=== PATIENT | female | born 1945 | race Caucasian/White ===

== ENCOUNTER 2018-03-17 18:25 | Emergency (ER) | payer MEDICARE, BC ==
[~2018-03-17] VITALS: Ht 160 cm; Wt 81.6 kg
[2018-03-17] MEDS ORDERED: diphenhydrAMINE 50 MG/1 ML VIAL IV ONE (18:30)
[2018-03-17] MEDS ORDERED: diphenhydrAMINE 50 MG/1 ML VIAL ONE (18:33)
[2018-03-17] MEDS ORDERED: methylPREDNISolone SOD SUCC 125 MG/2 ML VIAL ONE (18:36)
[2018-03-17] MEDS ORDERED: methylPREDNISolone SOD SUCC 125 MG/2 ML VIAL IV ONE (18:45)
[2018-03-17] MEDS ORDERED: NEOMY/BACITRA/POLYMYXIN B OINT UD PACKET TP ONE ×2 (18:59→19:00)
--- NOTE | 2018-03-17 19:23 | NUR ---
Received report from Earline RN, pt. resting in bed, c/o burning in throat and CP - notified Dr. Phan - awaiting orders,
[2018-03-17] MEDS ORDERED: CEFTRIAXONE 1 G in IV DEXTROSE 5% 50 ML IV ONE (19:30)
[2018-03-17] MEDS ORDERED: IV NORMAL SALINE 1000 ML BAG IV ONE (19:30)
[2018-03-17] MEDS ORDERED: CEFTRIAXONE 1 G VIAL ONE (19:38)
--- NOTE | 2018-03-17 21:03 | NUR ---
Patient discharged to home in stable conditon. Written and verbal after care instructions given. Patient verbalizes understanding of instructions. Pt. d/c w/ prescription per MD order, d/c papers signed, all belongings w/ pt., IV/ID band removed, ambualted w/ steady gait out of ED w/ male sweep molder, left in private vehicle, no acute distress,
== END 2018-03-17 21:08 | disposition home or self-care (01) ==
LOC: ER 18:25
DX: L50.0 Allergic urticaria (principal); N39.0 Urinary tract infection, site not specified; E78.5 Hyperlipidemia, unspecified; K21.9 Gastro-esophageal reflux disease without esophagitis; Z88.8 Allergy status to other drugs, medicaments and biological substances
CPT/HCPCS: 93005; 96365; 96375; 99283; J0696; J1200; J2930; J7060; A4663; J7030

== ENCOUNTER 2019-02-14 15:17 | Emergency (ER) | payer MEDICARE, BC ==
[~2019-02-14] VITALS: Ht 160 cm; Wt 83.9 kg
--- NOTE | 2019-02-14 15:30 | NUR ---
PT IS IN ROOM #2A. DR CROW EVALUATED THE PT.
[2019-02-14] MEDS ORDERED: HYDROMORPHONE 1 MG/1 ML DISP.SYRIN IV ONE (15:45)
[2019-02-14] MEDS ORDERED: IV NORMAL SALINE 1000 ML BAG IV ONE (15:45)
[2019-02-14] MEDS ORDERED: ONDANSETRON 4 MG/2 ML VIAL IV ONE (15:45)
[2019-02-14] MEDS ORDERED: ONDANSETRON 4 MG/2 ML VIAL ONE (15:51)
[2019-02-14] MEDS ORDERED: HYDROMORPHONE 1 MG/1 ML DISP.SYRIN ONE (15:51)
[2019-02-14 15:54] LABS: BASOPHILS # (AUTO) 0.1 K/uL (0.0-8.0); BASOPHILS % (AUTO) 0.9 % (0.0-2.0); EOSINOPHILS # (AUTO) 0.4 K/uL (0.0-0.7); EOSINOPHILS % (AUTO) 3.9 % (0.0-7.0); HEMATOCRIT 38.2 % (31.2-41.9); HEMOGLOBIN 12.4 g/dL (10.9-14.3); LYMPHOCYTES # (AUTO) 2.1 K/uL (20.0-40.0); LYMPHOCYTES % (AUTO) 23.6 % (20.5-51.5); MEAN CORPUSCULAR HEMOGLOBIN 27.4 uug (24.7-32.8); MEAN CORPUSCULAR HGB CONC 32 g/dL (32.3-35.6); MEAN CORPUSCULAR VOLUME 84.7 fL (75.5-95.3); MONOCYTES # (AUTO) 0.8 K/uL (2.0-10.0); MONOCYTES % (AUTO) 8.9 % (0.0-11.0); NEUTROPHILS # (AUTO) 5.7 K/uL (1.8-8.9); NEUTROPHILS % (AUTO) 62.7 % (38.5-71.5); PLATELET COUNT (AUTO) 200 K/uL (179-408); RED BLOOD CELL COUNT(AUTO) 4.51 MIL/uL (3.63-4.92); WHITE BLOOD COUNT (AUTO) 9.1 K/uL (3.8-11.8)
[2019-02-14 16:09] LABS: CREATININE 0.8 mg/dL (0.6-1.3)
[2019-02-14] MEDS ORDERED: ALPR0.5T PO (16:12)
[2019-02-14] MEDS ORDERED: FLUT1DIS27 IH (16:12)
[2019-02-14] MEDS ORDERED: METO-356 PO (16:12)
[2019-02-14] MEDS ORDERED: ATOR10TA PO (16:12)
[2019-02-14] MEDS ORDERED: TRAM50TA2 PO (16:12)
[2019-02-14] MEDS ORDERED: BUPR-51 PO (16:12)
[2019-02-14] MEDS ORDERED: ASPI81TA31 PO (16:12)
[2019-02-14] MEDS ORDERED: RANI300T4 PO (16:12)
[2019-02-14] MEDS ORDERED: ESCI10TA PO (16:12)
[2019-02-14 16:15] LABS: BILIRUBIN,DIRECT 0.1 mg/dL (0.0-0.2); BILIRUBIN,TOTAL 0.4 mg/dL (0.2-1.0); TOTAL PROTEIN, SERUM 6.7 g/dL (6.4-8.2)
[2019-02-14 17:03] LABS: *BILIRUBIN,URIN NEGATIVE (NEGATIVE); *CLARITY,URINE CLEAR (CLEAR); *COLOR,URINE YELLOW (YELLOW); *KETONES,URINE NEGATIVE (NEGATIVE); *UROBILINOGEN,URINE 0.2 E.U./dl (NORMAL); LEUKOCYTE ESTERASE ,URINE NEGATIVE (NEGATIVE); NITRITE, URINE NEGATIVE (NEGATIVE); UGLUCOSE NEGATIVE (NEGATIVE)
[2019-02-14 17:07] LABS: *BLOOD, URINE TRACE (NEGATIVE)
[2019-02-14 17:34] LABS: BACTERIA,URINE NONE SEEN /HPF (NONE SEEN); SQUAMOUS EPITHELIAL CELL,UR FEW /HPF (NONE SEEN); WBC,URINE 0-3 /HPF (0-3)
--- NOTE | 2019-02-14 17:39 | NUR ---
PT WAS D/C'd TO HOME AFTER DR CROW RE-EVALUATION. D/C INSTRUCTIONS GIVEN TO THE PT.
[2019-02-14 17:41] VITALS: BP 130/76
== END 2019-02-14 17:41 | disposition home or self-care (01) ==
LOC: ER 15:18
DX: R10.31 Right lower quadrant pain (principal); R11.0 Nausea; E78.5 Hyperlipidemia, unspecified; F32.9 Major depressive disorder, single episode, unspecified; F41.9 Anxiety disorder, unspecified; Z90.49 Acquired absence of other specified parts of digestive tract; Z88.8 Allergy status to other drugs, medicaments and biological substances; Z79.899 Other long term (current) drug therapy; Z79.82 Long term (current) use of aspirin
CPT/HCPCS: 36415; 71045; 74176; 80048; 80076; 81000; 81001; 83690; 84484; 85025; 85730; 87086; 93005; 96374; 96375; 99284; J1170; J2405; 70030-TC; A4663; J7030

== ENCOUNTER 2019-09-24 12:26 | Emergency (ER) | payer MEDICARE, BC ==
[~2019-09-24] VITALS: Ht 160 cm; Wt 81.6 kg
[~2019-09-24 12:26] MED LIST: ALPR0.5T PO; ASPI81TA31 PO; ATOR10TA PO; BUPR-51 PO; ESCI10TA PO; FLUT1DIS27 IH; METO-356 PO; RANI300T4 PO; TRAM50TA2 PO
--- NOTE | 2019-09-24 12:47 | NUR ---
PT IS IN ROOM #2A. DR STRONG EVALUATED THE PT.
[2019-09-24] MEDS ORDERED: TDAP DIPH,PERTUSS,TET VAC/PF 0.5 ML DISP.SYRIN IM ONE ×2 (13:00→13:29)
--- NOTE | 2019-09-24 14:03 | NUR ---
PT WAS D/C'd TO HOME. D/C INSTRUCTIONS GIVEN TO THE PT BY DR STRONG.
[2019-09-24 14:35] VITALS: BP 131/68
== END 2019-09-24 14:36 | disposition home or self-care (01) ==
LOC: ER 12:26
DX: M25.562 Pain in left knee (principal); M25.552 Pain in left hip; M79.641 Pain in right hand; F17.210 Nicotine dependence, cigarettes, uncomplicated; S80.212A Abrasion, left knee, initial encounter; W18.30XA Fall on same level, unspecified, initial encounter; Y92.89 Other specified places as the place of occurrence of the external cause; Y99.8 Other external cause status; M19.90 Unspecified osteoarthritis, unspecified site; J45.909 Unspecified asthma, uncomplicated; E78.5 Hyperlipidemia, unspecified
CPT/HCPCS: 73110; 73130; 73502; 90715; 93005; A4663

== ENCOUNTER 2019-11-17 19:48 | Emergency (ER) | payer MEDICARE, BC ==
[~2019-11-17] VITALS: Ht 160 cm; Wt 81.6 kg
--- NOTE | 2019-11-17 20:15 | NUR ---
patient is awake oriented , complains of abdominal pain / , doctor made aware
[2019-11-17 20:17] LABS: *BILIRUBIN,URIN NEGATIVE (NEGATIVE); *BLOOD, URINE 2+ (NEGATIVE); *CLARITY,URINE SLIGHTLY CLOUDY (CLEAR); *COLOR,URINE YELLOW (YELLOW); *KETONES,URINE NEGATIVE (NEGATIVE); *UROBILINOGEN,URINE 0.2 E.U./dl (NORMAL); LEUKOCYTE ESTERASE ,URINE 2+ (NEGATIVE); NITRITE, URINE NEGATIVE (NEGATIVE); UGLUCOSE NEGATIVE (NEGATIVE)
[2019-11-17 20:32] LABS: BACTERIA,URINE FEW /HPF (NONE SEEN)
[2019-11-17 20:33] LABS: RBC,URINE 20-50 /HPF (0-3); WBC,URINE 20-50 /HPF (0-3)
[2019-11-17 20:34] LABS: SQUAMOUS EPITHELIAL CELL,UR FEW /HPF (NONE SEEN)
[2019-11-17 20:40] LABS: BASOPHILS # (AUTO) 0.1 K/uL (0.0-8.0); BASOPHILS % (AUTO) 1.2 % (0.0-2.0); EOSINOPHILS # (AUTO) 0.4 K/uL (0.0-0.7); EOSINOPHILS % (AUTO) 3.6 % (0.0-7.0); HEMATOCRIT 36.8 % (31.2-41.9); HEMOGLOBIN 12.3 g/dL (10.9-14.3); LYMPHOCYTES # (AUTO) 2.7 K/uL (20.0-40.0); LYMPHOCYTES % (AUTO) 22.6 % (20.5-51.5); MEAN CORPUSCULAR HEMOGLOBIN 28.8 uug (24.7-32.8); MEAN CORPUSCULAR HGB CONC 33 g/dL (32.3-35.6); MEAN CORPUSCULAR VOLUME 86.5 fL (75.5-95.3); MONOCYTES # (AUTO) 0.9 K/uL (2.0-10.0); MONOCYTES % (AUTO) 7.3 % (0.0-11.0); NEUTROPHILS # (AUTO) 7.8 K/uL (1.8-8.9); NEUTROPHILS % (AUTO) 65.3 % (38.5-71.5); PLATELET COUNT (AUTO) 239 K/uL (179-408); RED BLOOD CELL COUNT(AUTO) 4.26 MIL/uL (3.63-4.92); WHITE BLOOD COUNT (AUTO) 11.9 K/uL (3.8-11.8)
[2019-11-17 20:50] LABS: BILIRUBIN,DIRECT 0.1 mg/dL (0.0-0.2); BILIRUBIN,TOTAL 0.4 mg/dL (0.2-1.0); TOTAL PROTEIN, SERUM 6.8 g/dL (6.4-8.2)
--- NOTE | 2019-11-17 21:13 | NUR ---
DR DAUGHERTY IS AT BEDSIDE , EXPLAINING THE RESULTS OF LAB WORKS
--- NOTE | 2019-11-17 21:15 | NUR ---
AMBULATORY , ACCOMPANIED BY A FAMILY MEMBER, PRESCRIPTION GIVEN , EXPLAINED AND VERBALIZES UNDERSTANDING
[2019-11-17] MEDS ORDERED: CEFTRIAXONE 1 G VIAL ONE (21:24)
[2019-11-17] MEDS ORDERED: LIDOCAINE HCL 2% 20 ML VIAL ONE (21:25)
[2019-11-17] MEDS ORDERED: CEFTRIAXONE 1 G VIAL IM ONE (21:30)
--- NOTE | 2019-11-17 21:50 | NUR ---
patient is awake oriented , complains of 2/ 10 abdominal pain , post rocephin im , prescription given and expaine , verbalizes understanding , discharge accompanied by famiy member
[2019-11-17 22:03] VITALS: BP 119/87
== END 2019-11-17 22:00 | disposition home or self-care (01) ==
LOC: ER 19:50
DX: N30.01 Acute cystitis with hematuria (principal); D72.829 Elevated white blood cell count, unspecified; E78.5 Hyperlipidemia, unspecified; J45.909 Unspecified asthma, uncomplicated; Z79.899 Other long term (current) drug therapy; F41.9 Anxiety disorder, unspecified
CPT/HCPCS: 36415; 80048; 80076; 81001; 83605; 83690; 85025; 87086; 96372; 99283; J0696; J3490; A4663

== ENCOUNTER 2021-10-09 11:20 | Emergency (ER) | payer MEDICARE, BC ==
[~2021-10-09] VITALS: Ht 154.9 cm; Wt 79.8 kg
[~2021-10-09 11:20] MED LIST changes: -BUPR-51 PO; +BUPR-53 PO
[2021-10-09] MEDS ORDERED: MORPHINE SULFATE 2 MG/1 ML DISP.SYRIN IV ONE (12:15)
[2021-10-09] MEDS ORDERED: ONDANSETRON 4 MG/2 ML VIAL IV ONE (12:15)
[2021-10-09] MEDS ORDERED: SWABABLE VALVE TRANSFER SET EA MC ONE (12:16)
[2021-10-09] MEDS ORDERED: IOHEXOL 350 100 ML INFUS..BTL ONE (12:17)
[2021-10-09] MEDS ORDERED: MORPHINE SULFATE 4 MG/1 ML DISP.SYRIN ONE (12:17)
[2021-10-09] MEDS ORDERED: IV NORMAL SALINE 250 ML IV ONE (12:17)
[2021-10-09] MEDS ORDERED: ONDANSETRON 4 MG/2 ML VIAL ONE (12:17)
[2021-10-09 12:36] LABS: HEMATOCRIT 37.7 % (31.2-41.9); MEAN CORPUSCULAR HEMOGLOBIN 28.3 uug (24.7-32.8); MEAN CORPUSCULAR VOLUME 84.4 fL (75.5-95.3); PLATELET COUNT (AUTO) 203 K/uL (179-408)
[2021-10-09 12:44] LABS: CARBON DIOXIDE 27 mmol/L (21-32); CHLORIDE 107 mmol/L (98-107); CREATININE 0.7 mg/dL (0.6-1.3); GLUCOSE 105 mg/dL (74-106); POTASSIUM 4.2 mmol/L (3.5-5.1); UREA NITROGEN, BLOOD 14 mg/dL (7-18)
[2021-10-09 12:48] LABS: ALANINE AMINOTRANSFERASE 11 U/L (14-59); ALKALINE PHOSPHATASE 68 U/L (50-136); ASPARTATE AMINOTRANSFERASE < 5 U/L (15-37); BILIRUBIN,DIRECT 0.1 mg/dL (0.0-0.2); BILIRUBIN,TOTAL 0.4 mg/dL (0.2-1.0); LIPASE 112 U/L (73-393); TOTAL PROTEIN, SERUM 6.4 g/dL (6.4-8.2)
--- NOTE | 2021-10-09 12:55 | NUR ---
Patient taken for CT scan.
[2021-10-09 12:57] LABS: *BILIRUBIN,URIN NEGATIVE (NEGATIVE); *BLOOD, URINE NEGATIVE (NEGATIVE); *CLARITY,URINE CLEAR (CLEAR); *COLOR,URINE YELLOW (YELLOW); *KETONES,URINE NEGATIVE (NEGATIVE); *UROBILINOGEN,URINE 0.2 E.U./dl (NORMAL); LEUKOCYTE ESTERASE ,URINE NEGATIVE (NEGATIVE); NITRITE, URINE NEGATIVE (NEGATIVE); UGLUCOSE NEGATIVE (NEGATIVE)
[2021-10-09] MEDS ORDERED: IV NORMAL SALINE 1000 ML BAG IV ONE (13:00)
[2021-10-09] MEDS ORDERED: DICYCLOMINE HCL 20 MG TABLET PO SCH (15:45)
[2021-10-09] MEDS ORDERED: DICY20TA11 PO (16:18)
--- NOTE | 2021-10-09 16:30 | NUR ---
Patient discharged to home in stable condition. Written and verbal after care instructions given. Patient verbalizes understanding of instructions. Stressed follow up or return to ER for worsening s/s.
== END 2021-10-09 16:31 | disposition home or self-care (01) ==
LOC: ER 11:23
DX: R10.31 Right lower quadrant pain (principal); Z90.49 Acquired absence of other specified parts of digestive tract; Z87.440 Personal history of urinary (tract) infections; R73.03 Prediabetes; Z96.643 Presence of artificial hip joint, bilateral
CPT/HCPCS: 99285; 74177; 96374; 76856; 96375; 80076; 80048; 81003; 83690; 85025; 36415; J2405; Q9967; J2270; J7040

== ENCOUNTER 2023-10-05 15:25 | Emergency (ER) | payer MEDICARE, BC ==
[~2023-10-05] VITALS: Ht 160 cm; Wt 81.6 kg
[~2023-10-05 15:25] MED LIST changes: +DICY20TA11 PO
[2023-10-05 16:39] LABS: BASOPHILS # (AUTO) 0.1 K/UL (0.0-0.2); BASOPHILS % (AUTO) 0.6 % (0.0-2.0); DIFFERENTIAL COMMENT 1; EOSINOPHILS # (AUTO) 0.2 K/uL (0.0-0.7); EOSINOPHILS % (AUTO) 1.5 % (0.0-7.0); HEMATOCRIT 39.5 % (31.2-41.9); HEMOGLOBIN 12.7 g/dL (10.9-14.3); LYMPHOCYTES # (AUTO) 2.8 K/uL (0.8-4.8); LYMPHOCYTES % (AUTO) 25.4 % (20.5-51.5); MEAN CORPUSCULAR HEMOGLOBIN 27.6 uug (24.7-32.8); MEAN CORPUSCULAR HGB CONC 32 g/dL (32.3-35.6); MEAN CORPUSCULAR VOLUME 85.5 fL (75.5-95.3); MONOCYTES # (AUTO) 0.8 K/uL (0.1-1.30); MONOCYTES % (AUTO) 7.1 % (0.0-11.0); NEUTROPHILS # (AUTO) 7.2 K/uL (1.8-8.9); NEUTROPHILS % (AUTO) 65.4 % (38.5-71.5); PLATELET COUNT (AUTO) 189 K/uL (179-408); RED BLOOD CELL COUNT(AUTO) 4.62 MIL/uL (3.63-4.92); RED CELL DISTRIBUTION WIDTH 15.1 % (12.3-17.7)
[2023-10-05 16:46] LABS: CARBON DIOXIDE 27 mmol/L (21-32); CHLORIDE 106 mmol/L (98-107); CREATININE 0.8 mg/dL (0.6-1.3); GLUCOSE 92 mg/dL (74-106); POTASSIUM 4.3 mmol/L (3.5-5.1); SODIUM SERUM 143 mmol/L (136-145); UREA NITROGEN, BLOOD 15 mg/dL (7-18)
[2023-10-05] MEDS ORDERED: PANTOPRAZOLE SODIUM 40 MG TABLET.DR PO ONE (17:10)
[2023-10-05] MEDS: PANTOPRAZOLE SODIUM 40 MG TABLET.DR PO ONE (17:12)
[2023-10-05 17:26] LABS: ALBUMIN 3.3 g/dL (3.4-5.0); BILIRUBIN,DIRECT 0.2 mg/dL (0.0-0.2); BILIRUBIN,TOTAL 0.4 mg/dL (0.2-1.0); TOTAL PROTEIN, SERUM 6.3 g/dL (6.4-8.2)
[2023-10-05 20:03] VITALS: BP 103/70; O2SAT 96
== END 2023-10-05 20:03 | disposition home or self-care (01) ==
LOC: ER 15:26
DX: R07.89 Other chest pain (principal); Z90.49 Acquired absence of other specified parts of digestive tract; Z98.890 Other specified postprocedural states; Z79.82 Long term (current) use of aspirin; Z79.899 Other long term (current) drug therapy; Z88.1 Allergy status to other antibiotic agents
CPT/HCPCS: 36415; 71045; 84484; 85025; 93005; A4606; A4663

== ENCOUNTER 2024-12-22 15:06 | Emergency (ER) | payer MEDICARE, BC, MEDICAID ==
[~2024-12-22] VITALS: Ht 152.4 cm; Wt 79.4 kg
[2024-12-22 16:03] LABS: PLATELET COUNT (AUTO) 188 K/uL (179-408); RED BLOOD CELL COUNT(AUTO) 4.53 MIL/uL (3.63-4.92); RED CELL DISTRIBUTION WIDTH 14.6 % (12.3-17.7); WHITE BLOOD COUNT (AUTO) 8.3 K/uL (3.8-11.8)
[2024-12-22 16:09] LABS: CREATININE 0.7 mg/dL (0.6-1.3); SODIUM SERUM 142 mmol/L (136-145); UREA NITROGEN, BLOOD 14 mg/dL (7-18)
[2024-12-22] MEDS: IV NORMAL SALINE 1000 ML BAG IV ONE (16:16)
[2024-12-22 16:33] LABS: ASPARTATE AMINOTRANSFERASE 16 U/L (15-37); TOTAL PROTEIN, SERUM 7.0 g/dL (6.4-8.2)
[2024-12-22 17:01] VITALS: BP 119/89
[2024-12-22 17:49] LABS: *BILIRUBIN,URIN NEGATIVE (NEGATIVE); *BLOOD, URINE NEGATIVE (NEGATIVE); *CLARITY,URINE CLEAR (CLEAR); *COLOR,URINE YELLOW (YELLOW); *KETONES,URINE NEGATIVE (NEGATIVE); *PROTEIN,URINE NEGATIVE (NEGATIVE); *UROBILINOGEN,URINE 0.2 E.U./dl (NORMAL); NITRITE, URINE NEGATIVE (NEGATIVE); UGLUCOSE NEGATIVE (NEGATIVE)
[2024-12-22 17:53] LABS: LEUKOCYTE ESTERASE ,URINE NEGATIVE (NEGATIVE)
[2024-12-22] MEDS ORDERED: CIPR500T5 PO (17:54)
[2024-12-22] MEDS ORDERED: METR500T PO (17:54)
[2024-12-22 18:36] VITALS: BP 119/89; TEMP 97.8; O2SAT 98
== END 2024-12-22 18:28 | disposition home or self-care (01) ==
LOC: ER 15:06
DX: R10.32 Left lower quadrant pain (principal); K57.30 Diverticulosis of large intestine without perforation or abscess without bleeding; I51.9 Heart disease, unspecified; G89.29 Other chronic pain; Z79.51 Long term (current) use of inhaled steroids; Z79.82 Long term (current) use of aspirin; Z79.899 Other long term (current) drug therapy; Z88.1 Allergy status to other antibiotic agents; Z88.7 Allergy status to serum and vaccine; Z90.49 Acquired absence of other specified parts of digestive tract; Z93.3 Colostomy status
CPT/HCPCS: 36415; 83690; 85025; A4606; A4663; J7040